=== PATIENT | male | born 1990 | race Asian ===

== ENCOUNTER 2016-10-24 09:09 | Emergency (ER) | payer BC ==
[~2016-10-24] VITALS: Ht 175.3 cm; Wt 77.1 kg
--- NOTE | 2016-10-24 09:10 | NUR ---
BIBRA FROM HOME DUE TO SUICIDAL IDEATION, PATIENT STATED "I TOOK 11 TABS OF XANAX(2MG)". PATIENT ARRIVED, AAO3, ADMITTED BEING DEPRESSED AND HAVING HX OF BIPOLAR.IN BRAD CUTE DISTRESS.RESPIRATION EVEN AND UNLABORED. PATIENT DENIES PAIN OR DISCOMFORT. GOWNED PATIENT AND PLACED ON TELE MONITOR. MD SHIPLEY AT BEDSIDE FOR EVAL
--- NOTE | 2016-10-24 09:18 | NUR ---
URINE SAMPLE SENT TO LAB
--- NOTE | 2016-10-24 09:23 | NUR ---
IT ANALYST AT BEDSIDE FRO BLOOD DRAW
--- NOTE | 2016-10-24 09:26 | NUR ---
PATIENT TRIED CALLING FAMILY BUT NO ANSWER
[2016-10-24 09:39] LABS: BASOPHILS % (AUTO) 0.4 % (0.0-2.0); EOSINOPHILS # (AUTO) 0.3 /CMM (0.0-0.7); EOSINOPHILS % (AUTO) 3.5 % (0.0-6.0); HEMATOCRIT 45 % (39-51); HEMOGLOBIN 15.3 g/dL (13.5-17.5); LYMPHOCYTES # (AUTO) 2.9 /CMM (0.8-4.8); LYMPHOCYTES % (AUTO) 37.3 % (20.0-44.0); MEAN CORPUSCULAR HEMOGLOBIN 34 PG (26.0-33.0); MEAN CORPUSCULAR HGB CONC 34 g/dl (31.0-36.0); MEAN CORPUSCULAR VOLUME 98 fL (80-96); MONOCYTES # (AUTO) 0.6 /CMM (0.1-1.30); MONOCYTES % (AUTO) 7.3 % (2.0-12.0); NEUTROPHILS # (AUTO) 3.9 /CMM (1.8-8.9); NEUTROPHILS % (AUTO) 51.5 % (43.0-81.0); PLATELET COUNT (AUTO) 256 /CMM (150-450); RDW COEFFICIENT OF VARIATION 13.3 (11.5-15.0); RED BLOOD CELL COUNT(AUTO) 4.55 MIL/uL (4.5-6.0); WHITE BLOOD COUNT (AUTO) 7.7 K/uL (4.3-11.0)
[2016-10-24 09:48] LABS: CALCIUM, SERUM 8.2 mg/dL (8.5-10.1); CARBON DIOXIDE 30 mmol/L (21-32); CHLORIDE 103 mmol/L (98-107); CREATININE 0.9 mg/dL (0.6-1.3); GFR 102 mL/min (>60); GLUCOSE 131 mg/dL (74-106); POTASSIUM 3.5 mmol/L (3.5-5.1); SODIUM SERUM 142 mmol/L (136-145); UREA NITROGEN, BLOOD 10 mg/dL (7-18)
[2016-10-24 09:54] LABS: ALANINE AMINOTRANSFERASE 74 U/L (12-78); ALBUMIN 3.5 g/dL (3.4-5.0); ALCOHOL, BLOOD < 3 mg/dL (0-0); ALKALINE PHOSPHATASE 45 U/L (46-116); ASPARTATE AMINOTRANSFERASE 40 U/L (15-37); BILIRUBIN,TOTAL 0.2 mg/dL (0.2-1.0); TOTAL PROTEIN, SERUM 6.9 g/dL (6.4-8.2)
[2016-10-24 09:58] LABS: ACETAMINOPHEN 0 ug/ml (10-30); SALICYLATE 0.7 mg/dL (2.8-20.0)
[2016-10-24 10:11] LABS: APPEARANCE,URINE CLEAR (CLEAR); BILIRUBIN,URINE NEGATIVE (NEGATIVE); BLOOD, URINE NEGATIVE Ery/uL (NEGATIVE); COLOR,URINE YELLOW (YELLOW); KETONES,URINE NEGATIVE (NEGATIVE); LEUKOCYTE ESTERASE ,URINE NEGATIVE (NEGATIVE); NITRITE, URINE NEGATIVE (NEGATIVE); PH,URINE 5.5 (5.0-8.0); PROTEIN,URINE NEGATIVE (NEGATIVE); UGLUCOSE NEGATIVE (NEGATIVE); UROBILINOGEN,URINE 0.2 EU/dL (0.2)
--- NOTE | 2016-10-24 10:27 | NUR ---
KADEEM ROSALES RN FOR PSYCH EVAL ETA = 1HR
[2016-10-24 10:29] LABS: PHENCYCLIDINE SCREEN,URINE NEGATIVE (NEGATIVE)
[2016-10-24 10:31] LABS: CANNABINOID, URINE POSITIVE (NEGATIVE)
--- NOTE | 2016-10-24 10:55 | NUR ---
BOBBY RN IN ER TO SEE PATIENT
--- NOTE | 2016-10-24 11:04 | NUR ---
ARNAUD RN AT BEDSIDE FOR EVALUATION
--- NOTE | 2016-10-24 11:45 | NUR ---
PATIENT WAS CLEARED BY MICHELLE ROSALES
[2016-10-24 11:56] VITALS: BP 141/76
--- NOTE | 2016-10-24 11:57 | NUR ---
Patient discharged to home in stable condition. Written and verbal after care instructions given. Patient verbalizes understanding of instruction. Patien was accompanied by parents.
== END 2016-10-24 11:58 | disposition home or self-care (01) ==
LOC: ER 09:11
DX: F32.9 Major depressive disorder, single episode, unspecified (principal); I10 Essential (primary) hypertension; F41.9 Anxiety disorder, unspecified; F31.9 Bipolar disorder, unspecified; Z88.0 Allergy status to penicillin
CPT/HCPCS: 36415; 80048; 80076; 80305; 80329; 81001; 85025; 99284; A4606; G0480 ×2; 81000-TC; G6039-TC; Z7610

== ENCOUNTER 2016-10-24 18:04 | Emergency (ER) | payer BC ==
[~2016-10-24] VITALS: Ht 172.7 cm; Wt 79.4 kg
--- NOTE | 2016-10-24 18:26 | NUR ---
CALL PLACED TO BOBBY FOR PSYCH EVAL; ETA 1 HR
--- NOTE | 2016-10-24 18:30 | NUR ---
PT BIB [facility] FOR PSYCH EVAL S/P PRESUMED OD ON XANAX AND CYMBALTA. PT WAS SEEN HERE EARLIER AND RELEASED TO PARENT'S CARE BY PSYCH CLINICIAN. PT STATES SI, DENIES HI. COMPLIANT WITH STAFF INSTRUCTION. RESP EVEN UNLABORED. SKIN WARM NONDIAPHORETIC. A/OX4. IN ER BED 15, PLACED ON SUICIDE PRECAUTIONS.
[2016-10-24 18:58] LABS: BASOPHILS # (AUTO) 0.1 /CMM (0.0-0.2); BASOPHILS % (AUTO) 0.9 % (0.0-2.0); EOSINOPHILS # (AUTO) 0.1 /CMM (0.0-0.7); HEMATOCRIT 43 % (39-51); HEMOGLOBIN 14.6 g/dL (13.5-17.5); LYMPHOCYTES # (AUTO) 2.2 /CMM (0.8-4.8); LYMPHOCYTES % (AUTO) 34.6 % (20.0-44.0); MEAN CORPUSCULAR HEMOGLOBIN 34 PG (26.0-33.0); MEAN CORPUSCULAR HGB CONC 34 g/dl (31.0-36.0); MEAN CORPUSCULAR VOLUME 99 fL (80-96); MONOCYTES # (AUTO) 0.5 /CMM (0.1-1.30); MONOCYTES % (AUTO) 7.8 % (2.0-12.0); NEUTROPHILS # (AUTO) 3.6 /CMM (1.8-8.9); NEUTROPHILS % (AUTO) 54.7 % (43.0-81.0); PLATELET COUNT (AUTO) 227 /CMM (150-450); RDW COEFFICIENT OF VARIATION 12.3 (11.5-15.0); RED BLOOD CELL COUNT(AUTO) 4.34 MIL/uL (4.5-6.0); WHITE BLOOD COUNT (AUTO) 6.5 K/uL (4.3-11.0)
[2016-10-24] MEDS ORDERED: OLANZAPINE 5 MG/TAB.RAPDIS PO ONE (19:00)
[2016-10-24 19:05] LABS: CALCIUM, SERUM 8.4 mg/dL (8.5-10.1); CARBON DIOXIDE 30 mmol/L (21-32); CHLORIDE 106 mmol/L (98-107); CREATININE 0.8 mg/dL (0.6-1.3); GFR 117 mL/min (>60); GLUCOSE 101 mg/dL (74-106); POTASSIUM 3.9 mmol/L (3.5-5.1); SODIUM SERUM 143 mmol/L (136-145); UREA NITROGEN, BLOOD 9 mg/dL (7-18)
[2016-10-24 19:10] LABS: ALANINE AMINOTRANSFERASE 65 U/L (12-78); ALBUMIN 3.6 g/dL (3.4-5.0); ALCOHOL, BLOOD < 3 mg/dL (0-0); ALKALINE PHOSPHATASE 41 U/L (46-116); ASPARTATE AMINOTRANSFERASE 36 U/L (15-37); BILIRUBIN,DIRECT 0.1 mg/dL (0.0-0.2); BILIRUBIN,TOTAL 0.1 mg/dL (0.2-1.0); TOTAL PROTEIN, SERUM 6.8 g/dL (6.4-8.2)
[2016-10-24 19:12] LABS: ACETAMINOPHEN < 2 ug/ml (10-30); SALICYLATE 2.4 mg/dL (2.8-20.0)
--- NOTE | 2016-10-24 19:22 | NUR ---
PT ASLEEP IN BED, EASILY AROUSABLE.
[2016-10-24] MEDS ORDERED: OLANZAPINE 5 MG/TAB.RAPDIS ONE (19:32)
--- NOTE | 2016-10-24 19:50 | NUR ---
PINKY AT BEDSIDE
--- NOTE | 2016-10-24 20:00 | NUR ---
1:1 SITTER AT BEDSIDE
[2016-10-24 21:00] VITALS: BP 137/82
--- NOTE | 2016-10-24 21:10 | NUR ---
[facility] ASSIST[facility] ETA 2 HOURS 30 MINUTES
--- NOTE | 2016-10-24 21:35 | NUR ---
REPORT GIVEN TO ALESHIA MARTINEZ FOR TRANSFER TO [facility]
[2016-10-24] MEDS ORDERED: NICOTINE PATCH (14MG) 14 MG PATCH.TD24 TD ONE (21:37)
[2016-10-24] MEDS ORDERED: NICOTINE PATCH (14MG) 14 MG PATCH.TD24 TD SCH (22:00)
--- NOTE | 2016-10-24 22:10 | NUR ---
PT'S BORTHER AT BEDSIDE. RESTING CALMLY, NAD NOTED
--- NOTE | 2016-10-24 23:23 | NUR ---
REPORT GIVEN TO MED RESPONSE STAFF.
--- NOTE | 2016-10-24 23:41 | NUR ---
PT TRANSFERRED TO [facility] IN STABLE CONDITION VIA [facility]
== END 2016-10-24 23:28 ==
LOC: ER 18:05
DX: R45.851 Suicidal ideations (principal); I10 Essential (primary) hypertension; F41.9 Anxiety disorder, unspecified; F31.9 Bipolar disorder, unspecified; Z88.0 Allergy status to penicillin
CPT/HCPCS: 36415; 80048; 80076; 80329; 85025; 99285; A4606; G0480 ×2; 80305; 81000-TC; G6039-TC; Z7610